=== PATIENT | male | born 1995 | race Asian ===

== ENCOUNTER 2017-12-13 06:38 | Emergency (ER) | payer OTHER ==
[~2017-12-13] VITALS: Ht 182.9 cm; Wt 61.2 kg
[2017-12-13 06:43] VITALS: BP_SYST 119
[2017-12-13 07:00] VITALS: BP_SYST 119
== END 2017-12-13 07:00 ==
LOC: SED 06:38
DX: Z02.89 Encounter for other administrative examinations (principal); V89.2XXA Person injured in unspecified motor-vehicle accident, traffic, initial encounter; Y93.89 Activity, other specified; Y92.410 Unspecified street and highway as the place of occurrence of the external cause; Y99.8 Other external cause status
CPT/HCPCS: 99283